=== PATIENT | male | born 1960 | race African-American/Black ===

== ENCOUNTER 2025-06-08 09:24 | Inpatient (IN) | payer OTHER ==
[2025-06-08 10:08] VITALS: BMI 29.7
[2025-06-08] MEDS ORDERED: LOPERAMIDE HCL 2 MG CAPSULE PO PRN (10:35)
[2025-06-08] MEDS ORDERED: guaiFENesin 600 MG TABLET.ER (FP) PO PRN (10:35)
[2025-06-08] MEDS ORDERED: MAGNESIUM HYDROX 2400MG/30ML ORAL SUSPENSION 30 ML CUP PO PRN (10:35)
[2025-06-08] MEDS ORDERED: ONDANSETRON *ODT* 4 MG TABLET SL PRN (10:35)
[2025-06-08] MEDS ORDERED: POLYETHYLENE GLYCOL (HEALTHYLAX) 3350 17 GM PACKET PO PRN (10:35)
[2025-06-08] MEDS ORDERED: ACETAMINOPHEN 325 MG TABLET (FP) PO PRN (10:35)
[2025-06-08] MEDS ORDERED: IBUPROFEN 600 MG TABLET (FP) PO PRN (10:35)
[2025-06-08] MEDS ORDERED: BISMUTH SUBSALICYLATE 524 MG/30 ML PO PRN (10:35)
[2025-06-08] MEDS ORDERED: BENZOCAINE/MENTHOL (CHLORASEPTIC ) LOZENGE MM PRN (10:35)
[2025-06-08] MEDS ORDERED: MAG HYDROX/AL HYDROX/SIMETH 30 ML UNIT-DOSE CUP PO PRN (10:35)
[2025-06-08] MEDS ORDERED: DICYCLOMINE HCL 10 MG CAPSULE PO PRN (10:35)
[2025-06-08] MEDS ORDERED: IBUPROFEN 400 MG TABLET (FP) PO PRN (10:35)
[2025-06-08] MEDS ORDERED: BENZONATATE 200 MG CAPSULE PO PRN (10:35)
[2025-06-08] MEDS ORDERED: NALOXONE (NARCAN) HCL 4 MG/0.1 ML SPRAY NS PRN (10:35)
[2025-06-08] MEDS ORDERED: BUPRENORPHINE/NALOXONE 0.5 MG/0.125 MG FILM ONE (11:22)
[2025-06-08] MEDS: BUPRENORPHINE/NALOXONE 0.5 MG/0.125 MG FILM SL ONE ×2 (11:26→22:13)
[2025-06-08] MEDS: NICOTINE POLACRILEX 2 MG GUM BUC PRN (13:36)
[2025-06-08] MEDS: THIAMINE 100 MG TABLET PO SCH (22:11)
[2025-06-08] MEDS: MELATONIN 5 MG TABLETS PO SCH (22:13)
[2025-06-09] MEDS: PRENATAL VITAMINS W/ FOLIC ACID TABLET (FP) PO SCH (09:24)
[2025-06-09] MEDS: BUPRENORPHINE/NALOXONE 0.5 MG/0.125 MG FILM SL SCH (09:25)
[2025-06-09] MEDS: FLU VACC TS2025-26(6MOS UP)/PF 45 MCG/0.5 ML SYRINGE IM ONE (11:50)
[2025-06-09 14:56] LABS: MCHC 32.6 g/dl (32.3-36.5); MEAN CELL VOLUME 92.2 fl (79.0-92.2); MEAN PLT VOLUME 11.0 fl (9.4-12.4); RDW 13.7 % (12.2-16.4)
[2025-06-09 15:25] LABS: GLUCOSE,RANDOM 104.0 mg/dL (74-106); TOT PROT 7.0 g/dl (6.4-8.2)
[2025-06-09 15:26] LABS: CO2 26.0 mmol/L (21-32)
[2025-06-09 15:28] LABS: ALK PHOS 73.0 U/L (40-150)
[2025-06-09 15:30] LABS: SGOT/AST 28.0 U/L (5-34); SGPT/ALT 9.0 U/L (0-55)
[2025-06-09 15:31] LABS: CREATININE 0.85 mg/dL (0.55-1.3)
[2025-06-09 16:39] LABS: SYPHILIS W/ RPR CONF REACTIVE (NONREACTIVE)
[2025-06-09] MEDS: SUVOREXANT 10 MG TABLET PO PRN (22:03)
[2025-06-10] MEDS: hydrOXYzine PAMOATE 25 MG CAPSULE (FP) PO PRN (05:29)
[2025-06-10] MEDS: BUPRENORPHINE/NALOXONE 2 MG/0.5 MG FILM PACKET SL SCH (10:12)
[2025-06-10 13:39] LABS: RPR REFLEX REACTIVE 1:8 (NONREACTIVE)
[2025-06-10] MEDS: METHOCARBAMOL 500 MG TABLET PO PRN (22:11)
[2025-06-11] MEDS: BUPRENORPHINE/NALOXONE 4 MG/1 MG FILM PACKET SL SCH (09:38)
[2025-06-12] MEDS: BUPRENORPHINE/NALOXONE 8 MG/2 MG FILM PACKET SL SCH (09:25)
[2025-06-13 09:08] VITALS: BP 139/83; PULSE 70; RESP 16; TEMP 98.7
[2025-06-13] MEDS: BUPRENORPHINE/NALOXONE 8 MG/2 MG FILM PACKET SL SCH (09:12)
== END 2025-06-13 10:25 | disposition home or self-care (01) | DRG 773 ==
LOC: YASAS 09:24 → SUATTDRO 09:24 → Y6N 11:10
PROVIDERS: ADMIT Family Medicine; ATTEND Counselor Addiction (Substance Use Disorder)
PROC: HZ2ZZZZ Detoxification Services for Substance Abuse Treatment (ICD-10-PCS; principal; 2025-06-08)
DX: F11.23 Opioid dependence with withdrawal (principal); F14.20 Cocaine dependence, uncomplicated; F17.210 Nicotine dependence, cigarettes, uncomplicated; F19.282 Other psychoactive substance dependence with psychoactive substance-induced sleep disorder; G47.00 Insomnia, unspecified; Z86.19 Personal history of other infectious and parasitic diseases
CPT/HCPCS: 36415; 80053; 80307; 85027; 86593; 86780; 90656; 93005; 93010